=== PATIENT | male | born 2000 | race Caucasian/White ===

== ENCOUNTER 2019-07-11 09:59 | Emergency (ER) | payer MEDICAID ==
[~2019-07-11] VITALS: Ht 167.6 cm; Wt 68.0 kg
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
[2019-07-11 11:16] VITALS: BP 147/92
[2019-07-11] MEDS ORDERED: ibuprofen 200mg tablet PO ONE (11:20)
== END 2019-07-11 11:29 | disposition home or self-care (01) ==
LOC: ER 10:00
DX: S50.312A Abrasion of left elbow, initial encounter (principal); S40.812A Abrasion of left upper arm, initial encounter; R21 Rash and other nonspecific skin eruption; V29.9XXA Motorcycle rider (driver) (passenger) injured in unspecified traffic accident, initial encounter; Y93.89 Activity, other specified; Y92.488 Other paved roadways as the place of occurrence of the external cause; Y99.8 Other external cause status
CPT/HCPCS: 73090; 99283

== ENCOUNTER 2019-11-03 15:39 | Emergency (ER) | payer MEDICAID, OTHER ==
[~2019-11-03] VITALS: Ht 167.6 cm; Wt 80.0 kg
[~2019-11-03 15:39] MED LIST: LIDOcaine 1% W/epiNEPHrine 1:100,000 20ml vial ONE
[2019-11-03 15:54] VITALS: BP 143/56
[2019-11-03] MEDS ORDERED: TETanus/Pertussis (Acell)/Diphther VAC/PF (Tdap-Adult) 0.5ml syringe IMVAC ONE (18:05)
[2019-11-03] MEDS: bacitracin 15gm ointment TP ONE ×2 (18:05→18:16)
[2019-11-03] MEDS ORDERED: CEPH250T PO (19:35)
== END 2019-11-03 19:57 | disposition home or self-care (01) ==
LOC: ER 15:39
DX: S81.012A Laceration without foreign body, left knee, initial encounter (principal); W29.3XXA Contact with powered garden and outdoor hand tools and machinery, initial encounter; Y93.89 Activity, other specified; Y92.89 Other specified places as the place of occurrence of the external cause; Y99.9 Unspecified external cause status
CPT/HCPCS: 12002; 73564; 90471; 90715; 99283

== ENCOUNTER 2022-08-14 16:18 | Emergency (ER) | payer SELFPAY ==
[~2022-08-14] VITALS: Ht 170.2 cm; Wt 68.2 kg
[2022-08-14 16:23] VITALS: BP 130/65
[2022-08-14] MEDS ORDERED: IBUP-1986 PO (18:57)
[2022-08-14] MEDS ORDERED: ketorolac trometh inj. 60 MG/2 ML VIAL IM ONE (19:10)
== END 2022-08-14 19:21 | disposition home or self-care (01) ==
LOC: ER 16:19
DX: M25.561 Pain in right knee (principal)
CPT/HCPCS: 29530; 73564; 96372; 99284; J1885

== ENCOUNTER 2024-06-11 15:13 | Inpatient (IN) | payer OTHER ==
[~2024-06-11] VITALS: Ht 172.7 cm; Wt 75.0 kg
[~2024-06-11 15:13] MED LIST changes: +IBUP-1986 PO; -LIDOcaine 1% W/epiNEPHrine 1:100,000 20ml vial ONE
[2024-06-11 16:01] LABS: BASOPHILS % (AUTO) 0.1 % (0-1); EOSINOPHILS % (AUTO) 0.2 % (0-6); HEMATOCRIT 45.1 % (42.0-52.0); HEMOGLOBIN 15.6 g/dl (14.0-17.9); LYMPHOCYTES % (AUTO) 7.8 % (21-51); MEAN CORPUSCULAR HEMOGLOBIN 31.1 PG (27.0-31.0); MEAN CORPUSCULAR HGB CONC 34.5 g/dL (33.0-36.5); MEAN CORPUSCULAR VOLUME 90.1 FL (78-98); MEAN PLATELET VOLUME 9.6 FL (7.4-10.4); MONOCYTES % (AUTO) 7.6 % (2-12); NEUTROPHILS # (AUTO) 10.8 X10'3 (1.8-7.7); NEUTROPHILS % (AUTO) 84.3 % (42-75); PLATELET COUNT 198 X10'3 (140-440); WHITE BLOOD COUNT 12.8 X10'3 (4.5-11.0)
[2024-06-11 16:11] LABS: ALANINE AMINOTRANSFERASE 33 U/L (12-78); ALBUMIN/GLOBULIN RATIO 1.1 (1.1-1.5); ALKALINE PHOSPHATASE 74 IU/L (46-116); ANION GAP 6 (8-16); ASPARTATE AMINO TRANSFERASE 17 U/L (10-37); BILIRUBIN,TOTAL 0.6 MG/DL (0.1-1.0); BLOOD UREA NITROGEN 10 MG/DL (7-18); BUN/CREATININE RATIO 10.6 (10.0-20.0); CHLORIDE 101 MMOL/L (99-107); CREATININE 0.94 MG/DL (0.60-1.10); GLUCOSE 112 MG/DL (70-104); LIPASE 50 U/L (16-77); POTASSIUM 3.5 MMOL/L (3.5-5.1); SODIUM 135 MMOL/L (135-145); TOTAL CARBON DIOXIDE 27.7 MMOL/L (24-32); TOTAL PROTEIN 7.6 G/DL (6.4-8.2); eCRCL 115 ML/MIN; eGFR > 90 ML/MIN
[2024-06-11] MEDS ORDERED: iohexol 300mg/ml 100ml inj. ONE (16:38)
[2024-06-11 17:18] LABS: BILIRUBIN,URINE MODERATE (Neg); CLARITY,URINE CLEAR (Clear); COLOR,URINE YELLOW (Yellow); GLUCOSE, URINE NEGATIVE (Neg); KETONES,URINE >=80 mg/dl (Neg); LEUKOCYTE ESTERASE ,URINE NEGATIVE (Neg); NITRITES, URINE NEGATIVE (Neg); OCCULT BLOOD,URINE NEGATIVE (Neg); PROTEIN,URINE TRACE mg/dl (Neg)
[2024-06-11 17:20] LABS: UA COLLECTION TYPE CLN CATCH MIDSTREAM
[2024-06-11 17:24] LABS: RBC,URINE 0-2 /HPF (0-2); SQUAMOUS EPITHELIAL CELL,UR NONE SEEN /LPF (FEW)
[2024-06-11 17:25] LABS: BACTERIA,URINE FEW /HPF (Neg)
[2024-06-11] MEDS: morphine 4 MG/ML inj SYRINge IV ONE (18:02)
[2024-06-11] MEDS: ondansetron/PF 4mg/2ml inj IV ONE (18:02)
[2024-06-11] MEDS: normal saline 1000ML IV soln IVB ONE (18:02)
[2024-06-11] MEDS ORDERED: NO HOME MEDS (18:31)
[2024-06-11] MEDS ORDERED: potassium Cl 40MEQ/1/2NS 520ml 520 ML IV PRN (19:15)
[2024-06-11] MEDS ORDERED: acetaminophen 325mg tablet PO PRN (19:15)
[2024-06-11] MEDS ORDERED: magnesium hydroxide 30ml (MOM) UD suspension PO PRN (19:15)
[2024-06-11] MEDS ORDERED: mag hydrox/Alum hydrox/simeth 30ml oral suspension PO PRN (19:15)
[2024-06-11] MEDS ORDERED: morphine 2 MG/ML inj. syringe IV PRN (19:15)
[2024-06-11] MEDS ORDERED: magnesium Cl slow-release 64mg tablet PO PRN (19:15)
[2024-06-11] MEDS ORDERED: potassium Cl 20 mEq SR tablet PO PRN ×2 (19:15)
[2024-06-11] MEDS ORDERED: magnesium sulf-water 4G/100mL 100 ML IV PRN (19:15)
[2024-06-11] MEDS: normal saline 1000ml 1,000 ML IV SCH (19:52)
[2024-06-11] MEDS: ondansetron/PF 4mg/2ml inj IV PRN (19:55)
[2024-06-11] MEDS: morphine 2 MG/ML inj. syringe IV PRN (19:56)
[2024-06-11 20:02] LABS: INR 1.2 INR; PROTHROMBIN TIME 12.3 SECONDS (9.0-12.0)
[2024-06-11 20:17] LABS: APTT 27 SECONDS (22-32)
[2024-06-11 20:57] VITALS: BP 132/74; PULSE 72; RESP 14; TEMP 97.8; O2SAT 96
[2024-06-12] VITALS (19 sets, daily range): BP systolic 100–149; BP diastolic 48–80; PULSE 55–99; RESP 10–20; TEMP 97.9–98.7; O2SAT 4–100
[2024-06-12] MEDS ORDERED: piperacillin/tazo 3.375gm/50ml 50 ML IV SCH
[2024-06-12] MEDS: piperacillin/tazo 3.375gm/50ml 50 ML IV SCH (00:05)
[2024-06-12] MEDS: docusate sod 100mg capsule PO SCH (00:05)
[2024-06-12 05:47] LABS: ALANINE AMINOTRANSFERASE 32 U/L (12-78); ALBUMIN 3.2 G/DL (3.4-5.0); ALBUMIN/GLOBULIN RATIO 1.1 (1.1-1.5); ALKALINE PHOSPHATASE 57 IU/L (46-116); ANION GAP 8 (8-16); ASPARTATE AMINO TRANSFERASE 12 U/L (10-37); BILIRUBIN,TOTAL 0.6 MG/DL (0.1-1.0); BLOOD UREA NITROGEN 9 MG/DL (7-18); CALCIUM 8.3 MG/DL (8.5-10.1); CHLORIDE 104 MMOL/L (99-107); GLUCOSE 89 MG/DL (70-104); MAGNESIUM 1.7 MG/DL (1.5-2.4); POTASSIUM 3.7 MMOL/L (3.5-5.1); SODIUM 137 MMOL/L (135-145); TOTAL CARBON DIOXIDE 24.8 MMOL/L (24-32); TOTAL PROTEIN 6.1 G/DL (6.4-8.2); eCRCL 120 ML/MIN; eGFR > 90 ML/MIN
[2024-06-12 05:53] LABS: BASOPHILS % (AUTO) 0.1 % (0-1); EOSINOPHILS % (AUTO) 0.4 % (0-6); HEMATOCRIT 40.1 % (42.0-52.0); HEMOGLOBIN 13.6 g/dl (14.0-17.9); LYMPHOCYTES # (AUTO) 1.2 X10'3 (1.1-4.8); LYMPHOCYTES % (AUTO) 11.3 % (21-51); MEAN CORPUSCULAR HEMOGLOBIN 30.7 PG (27.0-31.0); MEAN CORPUSCULAR HGB CONC 33.9 g/dL (33.0-36.5); MEAN CORPUSCULAR VOLUME 90.3 FL (78-98); MONOCYTES # (AUTO) 0.9 X10'3 (0-0.9); MONOCYTES % (AUTO) 9.3 % (2-12); NEUTROPHILS % (AUTO) 78.9 % (42-75); PLATELET COUNT 179 X10'3 (140-440); RED BLOOD COUNT 4.44 X10'6 (4.70-6.10); RED CELL DISTRIBUTION WIDTH 12.8 % (11.5-14.5); WHITE BLOOD COUNT 10.2 X10'3 (4.5-11.0)
[2024-06-12] MEDS ORDERED: midazolam 1 mg/ML 2ml injection ONE (07:11)
[2024-06-12] MEDS ORDERED: fentaNYL /PF 50mcg/ml 5ml ampule ONE (07:13)
[2024-06-12] MEDS: famotidine/PF 10 mg/ml inj IV ONE (07:17)
[2024-06-12] MEDS ORDERED: sevoflurane 250ml liquid IH ONE (07:46)
[2024-06-12] MEDS ORDERED: labetalol 20mg/4ml (5mg/ml) syringe IV PRN (07:50)
[2024-06-12] MEDS ORDERED: hydrALAZINE 20mg/ml inj. IV PRN (07:50)
[2024-06-12] MEDS ORDERED: proCHLORperazine 10 MG/2 ml inj IV PRN (07:50)
[2024-06-12] MEDS ORDERED: meperidine/PF 25mg/ml syringe IV PRN ×2 (07:50)
[2024-06-12] MEDS ORDERED: ondansetron/PF 4mg/2ml inj IV PRN ×2 (07:50→09:05)
[2024-06-12] MEDS ORDERED: morphine 4 MG/ML inj SYRINge IV PRN ×2 (07:50→09:05)
[2024-06-12] MEDS ORDERED: morphine 2 MG/ML inj. syringe IV PRN (07:50)
[2024-06-12] MEDS: ringers solution, lacted 1,000 ML IV SCH (07:50)
[2024-06-12] MEDS: BUPIVAcaine 2.5mg/ml inj 50ml vial (contains preservative) ONE (08:11)
[2024-06-12] MEDS ORDERED: ceFOXitin 1000 MG inj ONE ×2 (08:12)
[2024-06-12] MEDS ORDERED: rocuronium 10mg/ml inj IV ONE (08:12)
[2024-06-12] MEDS ORDERED: propofol inj 20 ML IV ONE (08:12)
[2024-06-12] MEDS ORDERED: dexamethasone sod phosphate 4mg/ml inj. ONE (08:12)
[2024-06-12] MEDS ORDERED: LIDOcaine 2% (20mg/ml) 5ml vial ONE (08:12)
[2024-06-12] MEDS ORDERED: ondansetron/PF 4mg/2ml inj ONE (08:12)
[2024-06-12] MEDS ORDERED: glycopyrrolate 0.2mg/ml inj ONE (08:55)
[2024-06-12] MEDS ORDERED: neostigmine methylsulfate 1 MG/ML 10ml vial ONE (08:55)
[2024-06-12] MEDS: vancomycin 1,000mg inj ONE (09:00)
[2024-06-12] MEDS ORDERED: sugammadex 200mg/2ml injection IV ONE (09:00)
[2024-06-12] MEDS ORDERED: naloxone 0.4 mg/ml inj IV PRN (09:05)
[2024-06-12] MEDS: acetaminophen 1,000mg/100ml IV 100 ML IV ONE (09:13)
[2024-06-12] MEDS: meperidine/PF 25mg/ml syringe IV PRN (09:13)
[2024-06-12] MEDS: ketorolac trometh 30MG/ML vial 30 MG/ML VIAL IV PRN (09:33)
[2024-06-12] MEDS: HYDROcodone/acetaminophen 10/325mg tab PO PRN (11:22)
[2024-06-13 02:00] VITALS: BP 131/79; PULSE 87; RESP 14; TEMP 98.6; O2SAT 97
[2024-06-13 04:33] LABS: BASOPHILS % (AUTO) 0.2 % (0-1); EOSINOPHILS % (AUTO) 0.3 % (0-6); HEMATOCRIT 39.3 % (42.0-52.0); HEMOGLOBIN 13.3 g/dl (14.0-17.9); LYMPHOCYTES # (AUTO) 1.2 X10'3 (1.1-4.8); LYMPHOCYTES % (AUTO) 9.7 % (21-51); MEAN CORPUSCULAR HEMOGLOBIN 30.4 PG (27.0-31.0); MEAN CORPUSCULAR HGB CONC 33.9 g/dL (33.0-36.5); MEAN CORPUSCULAR VOLUME 89.7 FL (78-98); MEAN PLATELET VOLUME 8.9 FL (7.4-10.4); MONOCYTES # (AUTO) 1.3 X10'3 (0-0.9); MONOCYTES % (AUTO) 10.5 % (2-12); NEUTROPHILS # (AUTO) 9.6 X10'3 (1.8-7.7); NEUTROPHILS % (AUTO) 79.3 % (42-75); PLATELET COUNT 192 X10'3 (140-440); RED BLOOD COUNT 4.38 X10'6 (4.70-6.10); RED CELL DISTRIBUTION WIDTH 13.1 % (11.5-14.5); WHITE BLOOD COUNT 12.1 X10'3 (4.5-11.0)
[2024-06-13 04:49] LABS: ALANINE AMINOTRANSFERASE 40 U/L (12-78); ALBUMIN 3.1 G/DL (3.4-5.0); ALKALINE PHOSPHATASE 57 IU/L (46-116); ANION GAP 9 (8-16); ASPARTATE AMINO TRANSFERASE 25 U/L (10-37); BILIRUBIN,TOTAL 0.4 MG/DL (0.1-1.0); BLOOD UREA NITROGEN 6 MG/DL (7-18); BUN/CREATININE RATIO 6.6 (10.0-20.0); CALCIUM 8.6 MG/DL (8.5-10.1); CHLORIDE 103 MMOL/L (99-107); CREATININE 0.91 MG/DL (0.60-1.10); GLUCOSE 114 MG/DL (70-104); MAGNESIUM 1.8 MG/DL (1.5-2.4); POTASSIUM 3.7 MMOL/L (3.5-5.1); SODIUM 138 MMOL/L (135-145); TOTAL CARBON DIOXIDE 25.6 MMOL/L (24-32); TOTAL PROTEIN 6.3 G/DL (6.4-8.2); eCRCL 119 ML/MIN; eGFR > 90 ML/MIN
[2024-06-13 06:00] VITALS: BP 119/72; PULSE 67; RESP 14; TEMP 98; O2SAT 99
[2024-06-13 10:00] VITALS: BP 120/66; PULSE 67; RESP 16; TEMP 98.1; O2SAT 94
[2024-06-13 18:00] VITALS: BP 133/72; PULSE 73; RESP 16; TEMP 98.4; O2SAT 97
[2024-06-13 20:00] VITALS: RESP 16; O2SAT 97
[2024-06-13 22:00] VITALS: BP 134/82; PULSE 74; RESP 24; TEMP 98.6; O2SAT 98
[2024-06-14 04:56] LABS: BASOPHILS % (AUTO) 0.3 % (0-1); EOSINOPHILS # (AUTO) 0.1 X10'3 (0-0.9); EOSINOPHILS % (AUTO) 1.4 % (0-6); HEMATOCRIT 38.2 % (42.0-52.0); HEMOGLOBIN 12.8 g/dl (14.0-17.9); LYMPHOCYTES # (AUTO) 1.9 X10'3 (1.1-4.8); LYMPHOCYTES % (AUTO) 27.1 % (21-51); MEAN CORPUSCULAR HEMOGLOBIN 30.4 PG (27.0-31.0); MEAN CORPUSCULAR HGB CONC 33.4 g/dL (33.0-36.5); MEAN PLATELET VOLUME 9.1 FL (7.4-10.4); MONOCYTES # (AUTO) 0.9 X10'3 (0-0.9); MONOCYTES % (AUTO) 12.1 % (2-12); NEUTROPHILS # (AUTO) 4.2 X10'3 (1.8-7.7); NEUTROPHILS % (AUTO) 59.1 % (42-75); PLATELET COUNT 207 X10'3 (140-440); RED BLOOD COUNT 4.19 X10'6 (4.70-6.10); RED CELL DISTRIBUTION WIDTH 13.3 % (11.5-14.5); WHITE BLOOD COUNT 7.2 X10'3 (4.5-11.0)
[2024-06-14 05:11] LABS: ALANINE AMINOTRANSFERASE 32 U/L (12-78); ALBUMIN 2.6 G/DL (3.4-5.0); ALBUMIN/GLOBULIN RATIO 0.8 (1.1-1.5); ALKALINE PHOSPHATASE 45 IU/L (46-116); ANION GAP 6 (8-16); ASPARTATE AMINO TRANSFERASE 18 U/L (10-37); BILIRUBIN,TOTAL 0.4 MG/DL (0.1-1.0); BLOOD UREA NITROGEN 8 MG/DL (7-18); BUN/CREATININE RATIO 8.2 (10.0-20.0); CALCIUM 8.8 MG/DL (8.5-10.1); CHLORIDE 104 MMOL/L (99-107); CREATININE 0.97 MG/DL (0.60-1.10); GLUCOSE 94 MG/DL (70-104); MAGNESIUM 1.7 MG/DL (1.5-2.4); SODIUM 139 MMOL/L (135-145); TOTAL CARBON DIOXIDE 28.6 MMOL/L (24-32); TOTAL PROTEIN 5.8 G/DL (6.4-8.2); eCRCL 112 ML/MIN; eGFR > 90 ML/MIN
[2024-06-14 06:00] VITALS: BP 122/75; PULSE 55; RESP 16; TEMP 97.7; O2SAT 97
[2024-06-14 07:55] VITALS: RESP 16; O2SAT 97
[2024-06-14] MEDS ORDERED: HYDR-3965 PO (10:13)
[2024-06-14 11:11] VITALS: BP 123/84; PULSE 80; RESP 16; TEMP 98.1; O2SAT 96
== END 2024-06-14 13:14 | disposition home or self-care (01) | DRG 399 ==
LOC: ER 15:13 → SUR 3N 19:22
PROVIDERS: ADMIT Internal Medicine Critical Care Medicine; ATTEND Internal Medicine
PROC: 8E0W4CZ Robotic Assisted Procedure of Trunk Region, Percutaneous Endoscopic Approach (ICD-10-PCS; 2024-06-12)
PROC: 0DTJ4ZZ Resection of Appendix, Percutaneous Endoscopic Approach (ICD-10-PCS; principal; 2024-06-12 07:46)
DX: K35.80 Unspecified acute appendicitis (principal); D72.829 Elevated white blood cell count, unspecified
CPT/HCPCS: 96374; 96375; 99285; Z7506; Z7508; 36415; 74177; 80053; 81001; 82948; 83605; 83690; 83735; 84145; 85025; 85610; 85730; 87081; 87088; 93005; A4215; A4314; A4615; A4618; A6449; G0378; J0131; J0694; J1100; J1885; J2175; J2250; J2270; J2405; J2543; J2704; J2710; J3010; J3370; J3490; J7030; J7040; J7120; Q9967